=== PATIENT | male | born 1970 | race Caucasian/White ===

== ENCOUNTER 2018-02-22 09:49 | Emergency (ER) | payer OTHER ==
[~2018-02-22] VITALS: Ht 182.9 cm; Wt 106.0 kg
[~2018-02-22 09:49] MED LIST: ASPIRIN81 M1 PO; AUGMENTIN875 MG PO; AZULFIDINE500 MG PO; Aspirin Chewable PO; COZAAR50 MG PO; CYMBALTA60 MG PO; DAILY VITE1 EAC1 PO; ENDOCET 5-3251 EACH PO; GLUCOPHAGE1000 MG PO; GLUCOTROL5 MG PO; HYDROCHLOROTHIA25 MG PO; HYDROCHLOROTHIA50 MG PO; Hydrodiuril,Oretic,E PO; LIORESAL10 MG PO; LIPITOR40 MG PO; LO-DOSE ASPIRIN81 M1 PO; MOBIC15 MG PO; NEURONTIN300 MG PO; NORCO 5/3251 TABLET PO; OXYCODONE HCL10 MG PO; PRILOSEC20 MG PO; PROTONIX40 MG PO; TOPROL XL100 MG PO; VITAMIN D31000 UNI2 PO; ZANTAC300 MG PO
[2018-02-22 10:42] LABS: CARBON DIOXIDE (BICARBONATE) 31.3 MEQ/L (20-31); HEMATOCRIT 39.5 % (38.0-50.0); HEMOGLOBIN 13.6 G/DL (12.5-16.6); MCH 27.1 PG (29.0-34.0); MCHC 34.4 G/DL (30.0-36.0); MCV 78.7 FL (86-99); PLATELET COUNT 166 K/uL (156-360); RBC DIS.WIDTH-CV 12.8 % (11.8-14.6); RBC DIS.WIDTH-SD 36.3 % (39-53); RED BLOOD COUNT 5.02 M/uL (4.00-5.50); WHITE BLOOD COUNT 6.2 K/uL (4.1-10.2)
[2018-02-22 11:10] LABS: CHLORIDE 97 mEq/L (99-109); POTASSIUM 3.8 mEq/L (3.7-5.4); SODIUM 136 mEq/L (136-147)
[2018-02-22 11:12] LABS: GLUCOSE 304 mg/dL (70-99)
[2018-02-22 11:16] LABS: CREATININE 1.1 mg/dL (0.6-1.3); GFR ESTIMATE (CALCULATED) > 59 mL/min/ (58.99-99999)
[2018-02-22 11:17] LABS: UREA NITROGEN (BUN) 14 mg/dL (9-23)
[2018-02-22 12:59] LABS: APPEARANCE CLEAR ((CLEAR)); BILIRUBIN NEGATIVE; BLOOD NEGATIVE; COLOR YELLOW ((YELLOW)); GLUCOSE (STRIP) >=500; KETONES 5; LEUKOCYTES NEGATIVE; NITRITE NEGATIVE; PROTEIN (STRIP) 30; SPECIFIC GRAVITY 1.035 (1.000-1.030); UCUL ADDED? NO; UROBILINOGEN 0.2 MG/DL (0.2-1.0)
[2018-02-22] MEDS ORDERED: OXYCONTIN10 MG PO (13:44)
[2018-02-22 14:34] VITALS: BP 150/85
== END 2018-02-22 14:34 | disposition home or self-care (01) ==
LOC: EME 09:49
PROVIDERS: Emergency Medicine
DX: E86.0 Dehydration (principal); E11.65 Type 2 diabetes mellitus with hyperglycemia; K21.9 Gastro-esophageal reflux disease without esophagitis; M19.90 Unspecified osteoarthritis, unspecified site; Z79.891 Long term (current) use of opiate analgesic; Z79.82 Long term (current) use of aspirin; Z79.84 Long term (current) use of oral hypoglycemic drugs; Z88.8 Allergy status to other drugs, medicaments and biological substances
CPT/HCPCS: 80048; 81003; 82803; 82948; 85027; 99281; 99285; J1885; J2405; J3010

== ENCOUNTER 2018-06-16 10:39 | Emergency (ER) | payer OTHER ==
[~2018-06-16] VITALS: Ht 182.9 cm; Wt 102.4 kg
[~2018-06-16 10:39] MED LIST changes: +OXYCONTIN10 MG PO
[2018-06-16 11:42] LABS: BASOPHIL (%) 0.5 % (0-1); EOSINOPHIL (%) 1.5 % (0-5); EOSINOPHIL COUNT 0.1 K/uL (0-0.3); HEMATOCRIT 42.8 % (38.0-50.0); HEMOGLOBIN 14.1 G/DL (12.5-16.6); IMMATURE GRANULOCYTE (%) 0.5 % (0.0-0.7); LYMPHOCYTE (%) 21.8 % (15-42); LYMPHOCYTE COUNT 1.9 K/uL (1.0-2.8); MCH 26.4 PG (29.0-34.0); MCHC 32.9 G/DL (30.0-36.0); MCV 80.1 FL (86-99); MONOCYTE (%) 10.2 % (3-12); MONOCYTE COUNT 0.9 K/uL (0-0.8); NEUTROPHIL (%) 65.5 % (45-76); NEUTROPHIL COUNT 5.6 K/uL (1.8-6.4); PLATELET COUNT 270 K/uL (156-360); RBC DIS.WIDTH-SD 43.2 % (39-53); RED BLOOD COUNT 5.34 M/uL (4.00-5.50); WHITE BLOOD COUNT 8.6 K/uL (4.1-10.2)
[2018-06-16 12:22] LABS: CHLORIDE 95 MEQ/L (99-109); CREATININE 1.5 MG/DL (0.6-1.3); GFR ESTIMATE (CALCULATED) 53 mL/min/ (58.99-99999); GLUCOSE 283 mg/dL (70-99); POTASSIUM 3.2 MEQ/L (3.7-5.4); SODIUM 136 MEQ/L (136-147); UREA NITROGEN (BUN) 18 mg/dL (9-23)
[2018-06-16] MEDS ORDERED: LIDOCAINE20 MG/1 M5 PO (15:25)
[2018-06-16] MEDS ORDERED: STELARA90 MG/1 ML SC (15:30)
[2018-06-16] MEDS ORDERED: TESTONE CI200 MG/1 M IM (15:31)
[2018-06-16] MEDS ORDERED: METOPROLOL SUCC50 MG PO (15:43)
[2018-06-16 15:52] VITALS: BP 130/89
== END 2018-06-16 15:52 | disposition home or self-care (01) ==
LOC: EME 10:39
PROVIDERS: Emergency Medicine
DX: E87.6 Hypokalemia (principal); E86.0 Dehydration; E11.9 Type 2 diabetes mellitus without complications; I10 Essential (primary) hypertension; E78.5 Hyperlipidemia, unspecified; K21.9 Gastro-esophageal reflux disease without esophagitis; L40.50 Arthropathic psoriasis, unspecified; Z79.84 Long term (current) use of oral hypoglycemic drugs; Z79.82 Long term (current) use of aspirin; Z88.8 Allergy status to other drugs, medicaments and biological substances
CPT/HCPCS: 80048; 85025; 99281; 99285; J7030